=== PATIENT | female | born 1960 | race Caucasian/White ===

== ENCOUNTER → 2016-10-20 | Outpatient (CLI) | payer MEDICARE, OTHER ==
[~2016-10-20] MED LIST: ACETAMINOPHEN; ACETAMINOPHEN PR; ALBUTEROL 0.5ML INH; ALBUTEROL MININEB NEB; ASCORBIC ACID500 M2 PO; BACID GT; BACID PO; BACTRIM DS TABL1 TA1 DOB; BAZA ANTIFUNGAL57 GM TOP; BISACODYL EC5 MG DOB; BISACODYL EC5 MG GT; CALCIUM + VITAM1 TAB GT; CALCIUM 500 + D1 TAB; CALCIUM CITRATE PO; CALCIUM CITRATE1 T11 GT; CALMOSEPTINE O3.5 GM; CENTRUM PEG; CENTRUM SILVER GT; CENTRUM240 ML; CETAPHIL226 GM; CHLORHEX GLU; CHRONULAC10 GM/15 M; CIPRO I.V.400 MG/200 IV; CIPRO PEG; CIPRO500 MG/5 M GT; CITRACAL + D CA1 TA1; CITRACAL + D CA1 TA1 PO; CITRATE OF MAG296 M1 GT; CLARITIN D GT; CORRECTOL5 MG PO; DEPAKOTE GT; DEPAKOTE SPRIN125 MG GT; DEPAKOTE SPRIN125 MG PEG; DEPAKOTE SPRIN125 MG PO; DIASTAT ACUDIAL1 KIT; DIASTAT ACUDIAL1 KIT PR; DIASTAT10 MG; DIASTAT10 MG PR; FERROUS FUMARAT1 TAB; FERROUS FUMARAT1 TAB GT; FERROUS FUMARATE GT; FERROUS SULFATE; GAVILYTE-G SO4000 ML GT; IBUPROFEN; IBUPROFEN GT; IBUPROFEN IN40 MG/ML PEG; IRON PEG; KCL; KCL FT; KEPPRA GT; KEPPRA100 MG/ML GT; KEPPRA1000 MG FT; KEPPRA1000 MG GT; KEPPRA1000 MG PO; KEPPRA500 M2 FT; KEPPRA500 M2 PO; KEPPRA500 MG GT; KEPPRA500 MG PO; KEPPRA750 MG; KEPPRA750 MG GT; KEPPRA750 MG PEG; KEPPRA750 MG PO; KLONOPIN; KLONOPIN GT; KLONOPIN1 MG PO; KRISTALOSE10 GM; LACTULOSE10 G/15 M1 GT; LACTULOSE10 G/15 M1 PO; LACTULOSE10 G/15 ML GT; LAMICTAL; LAMICTAL PO; LAMICTAL25 MG FT; LAMOTRIGINE100 MG FT; LAMOTRIGINE200 MG GT; LAMOTRIGINE200 MG PO; LAXATIVE5 M1 PO; LEVOTHROID112 MCG GT; LEVOTHROID112 MCG PO; LEVOTHYROXINE100 MC1 PO; LEVOTHYROXINE100 MCG GT; LEVOTHYROXINE112 MCG PO; LISINOPRIL GT; LISINOPRIL PEG; LOPRESSOR GT; LOPRESSOR PEG; LUBRIDERM; MAGNESIUM OXID420 MG GT; MELATONIN1 MG; MELATONIN3 MG FT; MEVACOR GT; MIACALCIN4 ML; MILK OF MAGNESIA; MILK OF MAGNESIA PO; MIRALAX17 GM DOB; MIRALAX17 GM FT; MIRALAX255 GM GT; MIRALAX255 GM PO; MULTIVITAMIN1 UDCAP; NEXIUM GT; NEXIUM40 MG/PACK PO; OMEPRAZOLE20 M1 PO; OYSTER CALCIUM GT; OYSTER CALCIUM500 MG GT; OYSTER CALCIUM500 MG PEG; OYSTER SHELL W; PAMPRIN MAX PA1 EACH; PAMPRIN MULTI-S1 TAB; PAMPRIN MULTI-S1 TAB PO; PAMPRIN PEG; PEG-3350 AND4000 ML PO; PHENERGAN PR; PHENERGAN12.5 M1 PR; PREVACID; PREVACID PEG; PREVACID SOLUTA30 MG DOB; PREVACID SOLUTAB GT; PRILOSEC FT; PROBENECID/COLC1 TAB GT; PROBIOTIC & AC1 EACH PO; SENNA LAXATIVE1 TAB GT; SENNA LAXATIVE1 TAB PO; SENNA S TABLET1 TAB PO; SENNA-S TABLE1 UDTAB GT; SYNTHROID; SYNTHROID GT; SYNTHROID PEG; TEGRETOL GT; TEGRETOL PO; THERA M PLUS1 UDTA1 PO; THERA PLUS GT; THERAGRAN1 TAB GT; THERAGRAN1 TAB PO; THIAMINE HCL100 MG FT; THIAMINE HCL100 MG GT; THIAMINE HCL100 MG PO; TYL325 PO; VALPROIC A250 MG/51 PO; VALPROIC ACID; VITAMIN C PO; VITAMIN C500 M2; VITAMIN C500 M5 GT; VITAMIN C500 MG/15 PO; ZITHROMAX200 MG/5 M PO; ZYRTEC10 M1 PO; [UNRECOGNIZED DRUG - CODE] GT; [UNRECOGNIZED DRUG - OTHER] FT; [UNRECOGNIZED DRUG - OTHER] GT
== END | disposition home or self-care (01) ==
LOC: CSSDAY 10:36
DX: M81.0 Age-related osteoporosis without current pathological fracture (principal); Z79.899 Other long term (current) drug therapy
CPT/HCPCS: 96372; J0897

== ENCOUNTER → 2016-12-15 | Day surgery (SDC) | payer MEDICARE, OTHER ==
--- NOTE | ~2016-12-15 | OR ---
Unit #: [id number] #: [id number] Patient: MICHAEL RAMACHANDRAN [id number] [address] [place], [place] [address] [id number] O MR#: [id number] NAME: MICHAEL RAMACHANDRAN ROOM: Date of Procedure: 12/15/2016 Admission Date: 12/15/2016 Surgeon: Jeffry Sharma Jr., M.D. : 1960 Attending Physician: Jeffry Sharma Jr., M.D. Primary Care Physician: Robbin Treviño Sr., M.D. OPERATIVE REPORT INDICATIONS FOR PROCEDURE The patient is a 56-year-old, mentally retarded, white female, who recently was checked with mammography and had a suspicious area in the right breast. This was felt to be suspicious enough that it should be removed and she was brought in at this time for preop needle localization in the operating room as well as right excisional breast biopsy. Informed consent has been obtained. PREOPERATIVE DIAGNOSIS Right breast mass, rule out occult malignancy. POSTOPERATIVE DIAGNOSES Right breast mass, rule out occult malignancy. 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 ANESTHESIA General with LMA. PROCEDURE PERFORMED Preop needle localization with right breast biopsy (excisional). DESCRIPTION OF PROCEDURE The patient was positioned in supine position. After being anesthetized, she was prepped and draped in routine fashion for needle localization. Radiologist did do needle localization on ultrasonography, and after this, the patient was re-prepped and draped in routine fashion for excisional right breast biopsy. A curvilinear incision was made obliquely near the area of the guidewire and this was approximately an inch and a half to two-inch in length. This was carried down through a subcutaneous tissue down to the tip of the guidewire. A core tissue approximately 5 cm in diameter was then taken around the guidewire and brought out through the incision and freed up the rest of the way with Metzenbaum scissors. After it was completely removed, it was sent to pathology. Hemostasis was achieved with Bovie cautery. The deeper tissue was approximated with interrupted 2-0 Vicryl sutures. Skin edges were approximated with stainless-steel skin clips and skin stapling device. Sterile dressings were applied externally. Estimated blood loss was less than 50 mL. The patient received less than 1000 mL of crystalloid solution during the procedure. Sponges and instrument counts were correct x3. No drain was used. No complications. The patient was taken to the recovery room with stable vital signs in satisfactory condition. Unit #: [id number] #: [id number] Patient: MICHAEL RAMACHANDRAN Dictated by... Jeffry Sharma Jr., MBrendan CHENEY/abhijit TD: 12/18/2016 18:36 JOB #: [id number] OPERATIVE REPORT Page 1 of 1 X Jeffry Sharma MD X PROCEDURE OPERATIVE NOTE
--- NOTE | ~2016-12-15 | US202 ---
[facility] A Service of [facility] RADIOLOGY TEXT RESULTS PATIENT: MICHAEL RAMACHANDRAN LOCATION: [facility] : [birth year] UNIT #: [id number] AGE: [address]: Jeffry Sharma MD SEX: F ORDER DR: [id number] [facility] [address] [place], [place] [address] [id number] O MR#: [id number] Acc #: [id number] NAME: MICHAEL RAMACHANDRAN : 1960 SEX: F STUDY DATE/TIME: 12/15/2016 13:06 UNIT: [facility] ROOM: STUDY DESCRIPTION: US Breast Guided Ndl Loc 1st Attending Physician: Jeffry Sharma Jr., M.D. Ordering Physician: Jeffry Sharma Jr., M.D. Primary Care Physician: Robbin Treviño Sr., M.D. MEDICAL IMAGING REPORT This report is preliminary unless electronic signature is present EXAM 1. Needle wire localization right breast. 2. Ultrasound guidance for needle placement. INDICATIONS 56-year-old female with profound mental retardation, recently noted to have enlarging indeterminate mass on screening ultrasound in the right breast. This was labeled as the 8 o'clock position but on the most recent comparison ultrasound from December 10, 2014, this was labeled as 6 o'clock position. Ultrasound-guided needle wire localization was requested intraoperatively prior to surgical excision of the mass today. PROCEDURE Informed consent was obtained by Dr. Sharma. The patient was under general anesthesia at the time I entered the operating room. The right breast was prepped and draped in usual sterile fashion. Before starting the procedure, the correct procedure, procedure site and the patient's name and date of were confirmed. Preliminary ultrasound confirms that the mass of concern is actually within the 6 o'clock right breast, although today's images were labeled by the technologist as the 8 o'clock position in preparation for today's needle wire localization. This is consistent with the 6 o'clock position of this mass on ultrasound of December 10, 2014. This mass does appear to have enlarged. Under direct ultrasound guidance and permanent image documentation, a 7 cm Kopans needle was placed through the mass using ultrasound guidance. The needle was removed and wire was left in place confirming that the tip of the wire is outside of the mass at its medial aspect with the other end of the wire passing out of the lateral aspect of the mass and through the skin. Dr. Sharma arrived to the operating room at the end of the procedure and the needle localization findings were discussed with him at that time. [facility] A Service of [facility] RADIOLOGY TEXT RESULTS PATIENT: MICHAEL RAMACHANDRAN LOCATION: [facility] : [birth year] UNIT #: [id number] AGE: [address]: Jeffry Sharma MD SEX: F ORDER DR: IMPRESSION Successful wire needle localization of enlarging 6 o'clock right breast mass with internal calcifications. Dictated by... Emile Barron M.D. THIS IS AN ELECTRONICALLY VERIFIED REPORT Emile Barron M.D. at 12/19/2016 5:57 PM BLM/pcl TD: 12/15/2016 19:51 JOB #: [id number] MEDICAL IMAGING REPORT Page 1 of 1 COPY
== END | disposition home or self-care (01) ==
LOC: CSUR 07:06
DX: D24.1 Benign neoplasm of right breast (principal); N60.91 Unspecified benign mammary dysplasia of right breast; R92.0 Mammographic microcalcification found on diagnostic imaging of breast; N64.1 Fat necrosis of breast; E78.5 Hyperlipidemia, unspecified; E03.9 Hypothyroidism, unspecified; M81.0 Age-related osteoporosis without current pathological fracture; Z88.1 Allergy status to other antibiotic agents; Z88.8 Allergy status to other drugs, medicaments and biological substances; Z79.899 Other long term (current) drug therapy; Z90.49 Acquired absence of other specified parts of digestive tract; Z90.89 Acquired absence of other organs; Z98.890 Other specified postprocedural states
CPT/HCPCS: 88307; J2250; J2405; J3010

== ENCOUNTER → 2017-05-02 | Outpatient (CLI) | payer MEDICARE, OTHER | END | disposition home or self-care (01) | LOC: CSSDAY 08:30 | DX: M81.0 Age-related osteoporosis without current pathological fracture (principal) | CPT/HCPCS: 96372; J0897 ==